=== PATIENT | male | born 1990 | race Caucasian/White ===

== ENCOUNTER 2020-12-20 11:37 | Emergency (ER) | payer OTHER ==
[2020-12-20] MEDS ORDERED: AMOXICILLIN500 MG PO (12:46)
== END 2020-12-20 13:04 | disposition home or self-care (01) ==
LOC: FER 11:37
DX: S61.411A Laceration without foreign body of right hand, initial encounter (principal); Z23 Encounter for immunization; Z88.1 Allergy status to other antibiotic agents; W26.0XXA Contact with knife, initial encounter; Y92.009 Unspecified place in unspecified non-institutional (private) residence as the place of occurrence of the external cause
CPT/HCPCS: 90471; 90715